=== PATIENT | female | born 1940 | race Caucasian/White ===

== ENCOUNTER 2019-12-25 21:40 | Emergency (ER) | payer MEDICARE, OTHER ==
[~2019-12-25 21:40] MED LIST: Atropine Sulfate 1 mg/10 ml Syringe ONE; Calcium Chloride 1 GM/10 ML Abboject SYRINGE ONE; EPINEPHrine 1 MG/10 ML Abboject SYRINGE ONE; Norepinephrine 4 MG/4 ML VIAL ONE; Sodium Bicarb 50 MEQ/50 ML Abboject 8.4% SYRINGE ONE; Sodium Chloride 0.9% 1,000 ML BAG ONE
[2019-12-25 22:05] LABS: INR-International Normal Ratio 1.6; Prothrombin Time 18.9 sec (12.0-14.7)
[2019-12-25 22:06] LABS: PTT 65.4 sec (22.9-36.1)
[2019-12-25 22:06] LABS: #Basophils 0.1 thou/uL (0.0-0.2); #Lymphocytes 2.8 thou/uL (1.20-3.40); #Monocytes 0.3 thou/uL (0.11-0.59); #Neutrophils 7.3 thou/uL (1.40-6.50); %Basophils 0.8 % (0.0-1.0); %Eosinophils 0.3 % (0.0-10.0); %Lymphocytes 26.5 % (21.0-51.0); %Monocytes 2.5 % (0.0-10.0); %Neutrophils 69.9 % (42.0-75.0); Hemoglobin 11.3 g/dL (12.0-16.0); Mean Corpuscular Hemoglobin 28.6 pg (27.0-31.0); Mean Corpuscular Volume 95.3 fL (78.0-98.0); Mean Platelet Volume 6.5 fL (7.4-10.4); Platelet Count 190 thou/uL (130-400); RBC Distribution Width 13.8 % (11.5-14.5); Red Blood Cell (RBC) Count 3.94 mill/uL (4.20-5.40); White Blood Cell (WBC) Count 10.5 thou/uL (4.8-10.8)
[2019-12-25 22:17] LABS: ALT (SGPT) 324 U/L (8-55); AST (SGOT) 299 U/L (5-34); Albumin 2.8 g/dL (3.4-4.8); Alkaline Phosphatase 69 U/L (40-110); Anion Gap 27 mmol/L (10-20); BUN (Urea Nitrogen) 30 mg/dL (9.8-20.1); Bilirubin, Total 0.6 mg/dL (0.2-1.2); CK (CPK) 94 U/L (29-168); Calc. Creatinine Clearance 0 mL/min (70-130); Calcium 10.2 mg/dL (7.8-10.44); Carbon Dioxide 18 mmol/L (23-31); Chloride 102 mmol/L (98-107); Estimated GFR-MDRD 32; Globulin 2.3 g/dL (2.4-3.5); Glucose 501 mg/dL (83-110); Lipase 57 U/L (8-78); Potassium 5.1 mmol/L (3.5-5.1); Protein, Total 5.1 g/dL (6.0-8.3); Sodium 142 mmol/L (136-145)
[2019-12-25] MEDS ORDERED: Sodium Bicarb 50 MEQ/50 ML Abboject 8.4% SYRINGE ONE (22:32)
[2019-12-25] MEDS ORDERED: Dextrose 5% in Water 1,000 ML ONE (22:33)
[2019-12-25 22:34] LABS: CKMB 1.8 ng/mL (0-6.6)
[2019-12-26 00:52] LABS: Bilirubin Negative (Negative); Blood, Urine Trace (Negative); Clarity Clear (Clear); Glucose, Urine (Dipstick) Negative (Negative); Ketone, Urine Negative (Negative); Leukocyte Negative (Negative); Nitrite Negative (Negative); Protein, Urine (Dipstick) > or equal to 300 mg/dL (Neg-Trace); Urobilinogen 0.2 mg/dL (Less than 2); pH, Urine 5.5 (5.0-9.0)
[2019-12-26 00:55] LABS: Bacteria/HPF Rare-Few HPF (None Seen); Mucous/LPF 1+ LPF (<2+); RBC/HPF 0-3 HPF (0-3); Squamous Epithelial 0-3 HPF (0-3); WBC/HPF 0-3 HPF (0-3)
--- NOTE | 2019-12-26 09:05 | RAD ---
PORTABLE CHEST: HISTORY: CPR in progress. FINDINGS: Endotracheal tube is in satisfactory position. Heart size appears borderline considering the supine technique. Pulmonary vessels and parahilar markings are increased suggestive of pulmonary edema-type change. Changes are slightly more confluent in the right upper lobe. IMPRESSION: 1. Pulmonary vascular engorgement suggesting an element of edema. There is a question of infiltrate in the right upper lobe. This may just be related to the rotation. 2. Endotracheal tube in satisfactory position. POS: ANGI
[2019-12-27 12:09] LABS: SARS-CoV-2 MS2 Positive; SARS-CoV-2 N Gene Negative; SARS-CoV-2 S Gene Negative; SARS-CoV-2 by NAA Not Detected (NotDetected); SARS-CoV-2 orf1ab Negative
== END 2019-12-26 01:45 | disposition expired ==
LOC: MADERS 21:40
DX: I46.9 Cardiac arrest, cause unspecified (principal); J96.90 Respiratory failure, unspecified, unspecified whether with hypoxia or hypercapnia; Z11.59 Encounter for screening for other viral diseases; R73.9 Hyperglycemia, unspecified; E87.2 Acidosis; J81.1 Chronic pulmonary edema
CPT/HCPCS: 51702; 71045; 80053; 82550; 82553; 83605; 83690; 84484; 85025; 85610; 85730; 87086; 92950; 93005; 96365; 96368; 96375; 96376; 99285; U0003; 81003; 81015; 87635; J0171; J0461; J7050; J7070